=== PATIENT | female | born 1940 | race African-American/Black ===

== ENCOUNTER → 2019-11-23 | Outpatient (CLI) | payer OTHER | LOC: CAT 13:24 | PROVIDERS: ATTEND Internal Medicine | DX: K57.30 Diverticulosis of large intestine without perforation or abscess without bleeding (principal); J98.4 Other disorders of lung; J98.11 Atelectasis; Z90.49 Acquired absence of other specified parts of digestive tract; Z90.722 Acquired absence of ovaries, bilateral ==